=== PATIENT | male | born 1975 | race Caucasian/White ===

== ENCOUNTER → 2017-03-25 | Outpatient (CLI) | payer BC, OTHER ==
[~2017-03-25] VITALS: Ht 180.3 cm; Wt 91.9 kg
[2017-03-25 12:35] VITALS: BP 147/91; PULSE 56; Ht 180.3 cm; Wt 91.9 kg
== END | disposition home or self-care (01) ==
LOC: C.NEUR 12:15
PROVIDERS: ATTEND Internal Medicine Pulmonary Disease
DX: R06.83 Snoring (principal); R53.83 Other fatigue; R06.81 Apnea, not elsewhere classified; I10 Essential (primary) hypertension

== ENCOUNTER → 2017-05-17 | Outpatient (CLI) | payer BC, OTHER ==
[~2017-05-17] VITALS: Ht 180.3 cm; Wt 93.3 kg
[2017-05-17 12:31] VITALS: BP 149/80; PULSE 70; Ht 180.3 cm; Wt 93.3 kg
== END | disposition home or self-care (01) ==
LOC: C.NEUR 12:15
PROVIDERS: ATTEND Physician Assistant Medical
DX: G47.33 Obstructive sleep apnea (adult) (pediatric) (principal); G47.31 Primary central sleep apnea; R53.83 Other fatigue

== ENCOUNTER → 2017-09-02 | Outpatient (CLI) | payer BC, OTHER ==
--- NOTE | 2017-09-03 05:25 | PAP/PSG TECHNICIAN REPORT ---
[facility] Tipple Oiler Polysomnogram Report Study name: None Report date: 09/03/2017 Study date: 09/02/2017 Referring Physician: DR. GARCIA Name: ALEX SANCHEZ Interpreting Physician: Dave Garcia M.D. Date of : 1975 Tipple Oiler: Luciano Holguin RPSMAC. Sex: Male Age: 41 StudyType: PSG PAP Weight: 202 lbs 17 inches Height: 41 years, Height 5' 11" Neck Circum: BMI: 28.17 Medications: LISINOPRIL 5 MG Patient History PATIENT HAS HISTORY OF HYPERTENSION, SNORING AND GASPING FOR AIR. ALSO, HAD A BRAIN TUMOR. PATIENT HAD A SPLIT-STUDY DONE IN APRIL OF 2017 WITH AN AHI 0F 50.1/HR. HE HAS TRIED CPAP BUT HAS NOT BEEN TOLERANT OF IT. CENTRAL APNEAS WERE SEEN DURING A TRIAL OF CPAP. HE IS HERE TODAY FOR AN ASV STUDY. RM 3 Parameters Monitored NPSG: E1-M2, E2-M1, Fp1-M2, Fp2-M1, F3-M2, F4-M2, F4-M1, C3-M2, C4-M2, C4-M1, O1-M2, O2-M2, O2-M1, T3-M2, T4-M1, P3-M2, P4-M1, CHIN1, CHIN2, HR, EKG, Legs, PFLOW, SNOR, FLOW, CFLOW, Tidal Volume, THOR, ABDO, SpO2, PLTH, CPRESS, ETCO2 Wave, ETCO2, pH Sleep Architecture Sleep Stages Time at Lights Off 9:48:48 PM STAGES Time (min.) TST (%) Time at Lights On 5:16:48 AM Wake 43.0 -- Total Recording Time (TRT) 449.00 min. N1 14.5 4 Total Sleep Period (TSP) 429.0 min. N2 188.0 46 Total Sleep Time (TST) 405.0min. N3 140.0 35 Awake Time 44.0 min. REM 62.5 15 Wake after Sleep Onset 35.5 min. Sleep Efficiency (SE) 90 % Sleep Onset Latency (INGRIS) 7.5 min. Number of Stage 1 Shifts None Awakenings 13 Stage Changes 67 Number of REM periods 4 REM 62.5 15 REM Latency 140.0 min. NREM 342.5 85 Body Position Analysis Supine Right Left Side Prone Vertical Total Sleep Time (min.) 169.9 248.1 0.0 248.13 0.0 0.0 Total Sleep Time (%) 39% 61% 0% 61 0% N/A% Total Sleep Time REM (min.) 20.5 42.0 0.0 None 0.0 0.0 Total Sleep Time NREM (min.) 136.4 206.1 0.0 None 0.0 0.0 Intermittent Wake (min.) 13.0 30.0 0.0 None 0.0 0.0 Total Sleep Period (%) 39% None None None None None Arousals Myoclonus (PLM) * Events Count Index Events Count Index Spontaneous 45 7 Events Awake (PLMW) 16 22.3 Respiratory 6 0.9 Events Asleep w/ Arousal (PLMA) 2 0.3 PLM 2 0 Events Asleep w/o Arousal (PLMS) 13 1.9 Snoring 6 1 Total Asleep 15 2.2 Total 59 9 Total 31 4 Respiratory Analysis * CA OA MA CH H RERA Total Count 18 0 0 0 11 0 29 Index 2.7 0.0 0.0 0 1.6 0 4.3 Mean Duration 11.3 0.0 0.0 0.00 19.4 0.0 14.3 Longest Duration 13.0 0.0 0.0 0.00 0.0 0.0 42.1 Respiratory Event Summary Total Supine ~Supine Right Left Prone REM NREM Apneas Count 18 0 18 18 N/A N/A 0 18 Index 2.7 0 4 4.4 N/A N/A 0 3 Hypopneas (4% Desat) Count 11 4 7 7 N/A N/A 0 11 Index 1.6 1.5 2 1.7 N/A N/A 0.0 1.9 Apneas & All Hypopneas Count 29 4 25 25 N/A N/A 0 29 Index 4.3 2 6 6 N/A N/A 0.0 5.1 Respiratory Events (Parachute/Combatant Diver Officer+All Hyp+RERA) Count 29 4 25 25 N/A N/A 0 29 Index 4.3 2 6 6.0 N/A N/A 0.0 5.1 Respiratory Related Arousal Count 6 4 4 4 N/A N/A 0 6 Index 0.9 1 1 1 N/A N/A 0 1 Snoring Analysis Supine Right Left Prone REM NREM Total Snore duration 6.9 min Snores count 25 234 N/A N/A 2 257 259 Snore mean duration 1.6 Sec Snores index 10 57 N/A N/A 1.9 45.0 38.4 TST with snoring (%) 1.7% Desaturation Event Summary: Minimum %SpO2 Event Count Mean/Min/Max Duration(sec.) Desaturation Index % Time In Bed > 90 15 29.6 / 13.8 / 55.8 2.0 99.2 86 - 90 0 N/A 0.0 0.8 81 - 85 0 N/A 0.0 0.0 76 - 80 0 N/A 0.0 0.0 71 - 75 0 N/A 0.0 0.0 66 - 70 0 N/A 0.0 0.0 61 - 65 0 N/A 0.0 0.0 56 - 60 0 N/A 0.0 0.0 51 - 55 0 N/A 0.0 0.0 < 50 0 N/A 0.0 0.0 Total REM NREM Awake <50% 0.0 min. 0.0 min. 0.0 min. 0.0 min. 51 - 60% 0.0 min. 0.0 min. 0.0 min. 0.0 min. 61 - 70% 0.0 min. 0.0 min. 0.0 min. 0.0 min. 71 - 80% 0.0 min. 0.0 min. 0.0 min. 0.0 min. 81 - 90% 3.8 min. 0.2 min. 3.6 min. 0.0 min. 91 - 100% 444.2 min. 62.4 min. 338.9 min. 43.0 min. Average 94 93 94 96 Minimum SpO2 87 90 87 91 Desaturation Event Index 2.0 0.0 2.6 0.0 # Desat. Events below 89% 1 N/A 1 N/A Time(%) with Saturation below 89% 0.1 0.0 0.1 0.0 Time(min.) with Saturation below 89% 0.4 0.0 0.4 0.0 Time (mins) REM (mins) NREM (mins) % of TST SpO2 Below 90% 10 N/A N10 0.2 SpO2 Below 88% 1 0 0 0 Heart Rate Analysis Min (bpm) Max (bpm) Average (bpm) Awake 52 129 66 NREM 50 112 59 REM 50 80 57 Overall 50 112 58 Supplemental O2 Values Minimum O2 level: None Value Start Time End Time Tipple Oiler Comments Mr. Sanchez slept in the right and supine positions. No cardiac arrhythmia noted. Leg movements noted. No bruxism noted. ASV was initiated at EPAP MIN 4, EPAP MAX 15, MIN PS 4, MAX PS 20, MAX PRESSURE 25, RATE AUTO, which nearly eliminated all respiratory events and snoring. The patient brought in his own mask that was used during titration Mr. Sanchez awoke to use the restroom 0 times during the night. Mr. Sanchez stated I slept as well as I do when I am in my own bed. The final report will be interpreted and signed by a sleep physician. The completed physician report will then be placed in the patient medical record. Therapy Event: Therapy (cm H20) 1 Total Time at Pressure (min.) 448.0 TST at Pressure (min.) 405.0 # Periods 1 Sleep Onset (min.) 7.5 REM Onset (min.) 147.5 Sleep Efficiency % 90 Wakefulness (%) 9.6 Wakefulness (min.) 43.0 NREM 1 (%) 3.2 NREM 1 (min.) 14.5 NREM 2 (%) 42.0 NREM 2 (min.) 188.0 NREM 3 (%) 31.3 NREM 3 (min.) 140.0 REM (%) 14.0 REM (min.) 62.5 # Arousals 59 Arousal Index 8.7 # Snore 259 Snore Index 38.4 AHI 4.3 AHI Supine 1.5 AHI Non-Supine 6.0 NREM AHI 5.1 REM AHI 0.0 RDI 4.3 # Obstructive 0 # Central Ap 18 # Mixed 0 # Hypopneas 11 RERAS 0 Total Respiratory Events 29 Time Below SpO2 89.00% (min.) 0.4 Mean NREM SpO2 (%) 94 Mean REM SpO2 (%) 93 Mean Sleep SpO2 (%) 94 Min NREM SpO2 (%) 87 Min REM SpO2 (%) 90 Position Supine (min.) 156.9 Position Non-supine (min.) 248.1 LM Index Sleep 2.2 LM Index NREM 1.9 LM Index REM 3.8 Mean Heart Rate (bpm) 58 Min Heart Rate (bpm) 50
--- NOTE | 2017-09-05 19:23 | POLYSOMNOGRAPH REPORT ---
CLINICAL DATA: A 41-year-old male with BMI of 28.17, referred by myself for an ASV titration. He had a split-night study done in 04/2017 which showed severe sleep apnea with an AHI of 50.1. He developed treatment onset central apneas. He has tried CPAP but has not been tolerant of it. SLEEP ARCHITECTURE: Total sleep period was 429 minutes. Total sleep time was 405 minutes divided between 342.5 minutes of non-REM sleep and 62.5 minutes of REM sleep. Sleep onset latency was 7.5 minutes. REM latency was 140 minutes. Sleep efficiency was 90%. Wake after sleep onset was 35.5 minutes. Sleep consisted of stage N1 4%, stage N2 46%, stage N3 35% and REM 15%. AROUSAL DATA: 59 arousals were recorded for an index of 9 per hour. 45 were spontaneous. PERIODIC LIMB MOVEMENT DATA: 15 limb movements during sleep were noted for an index of 2.2 per hour with arousal index of 0.3 per hour. RESPIRATORY DATA: The AHI was 4.3. There were 18 central apneic episodes. The longest apneic episode was 13 seconds. There were 11 hypopneic episodes with a mean duration of 19.4 seconds. OXIMETRY DATA: No significant hypoxemia was seen. Oxygen regla was 87% during non-REM sleep. Mean saturation was 94%. Time below 88% was 1 minute. HEART RATE DATA: Heart rates ranged from 50-112 beats per minute. No arrhythmias were noted. BINDER AND BOX BUILDER'S COMMENTS: The patient slept in the right and supine positions. He brought his own facemask. He was started on ASV, EPAP minimum 4, EPAP maximum 15, minimum pressure support 4, maximum pressure support 20, maximum pressure 25, rate auto. On that regimen, the patient slept for 405 minutes with an AHI of 4. IMPRESSION: Severe obstructive sleep apnea, corrected with adaptive servo ventilation at the above-noted settings. RECOMMENDATIONS: The patient will be seen back in followup to be started on ASV. [facility]ITALBakari
== END | disposition home or self-care (01) ==
LOC: C.NEUR 21:00
PROVIDERS: ATTEND Physician Assistant Medical
DX: G47.33 Obstructive sleep apnea (adult) (pediatric) (principal)

== ENCOUNTER 2022-05-19 20:20 | Observation (INO) ==
[2022-05-19 20:56] LABS: Appearance Urine Clear (Clear); Bilirubin Urine Negative (Negative); Blood Urine Negative (Negative); Color Urine Yellow; Glucose Urine UA Negative (Negative); Ketones Urine Negative (Negative); Leukocyte Esterase Urine Negative (Negative); Nitrite Urine Negative (Negative); Protein Urine Negative (Negative); Specific Gravity Urine 1.023 (1.000-1.030); Urobilinogen Urine Negative (Negative)
[2022-05-19 21:15] LABS: Basophils # (auto) 0.08 K/uL (0-0.2); Basophils % (auto) 0.7 %; Eosinophils # (auto) 0.33 K/uL (0-0.50); Eosinophils % (auto) 2.9 %; Hematocrit (blood only) 31.3 % (40.1-51.0); Immature Granulocytes # (auto) 0.04 K/uL (0.00-0.02); Immature Granulocytes % (auto) 0.4 %; Lymphocytes # (auto) 3.69 K/uL (1.2-3.4); Lymphocytes % (auto) 32.8 %; Mean Corpuscular Hemoglobin 30.5 pg (25.0-34.0); Mean Corpuscular Hgb Conc 35.1 g/dL (32.0-36.0); Mean Corpuscular Volume 86.7 fL (80.0-100.0); Mean Platelet Volume 9.3 fL (9.4-12.4); Monocytes # (auto) 0.82 K/uL (0.24-0.82); Monocytes % (auto) 7.3 %; Neutrophils # (auto) 6.28 K/uL (1.4-6.5); Neutrophils % (auto) 55.9 %; Platelet Count 271 K/uL (130-400); RDW Coefficient of Variation 11.9 % (11.5-14.5); Red Blood Count 3.61 M/uL (4.63-6.08); White Blood Count 11.24 K/ul (4.8-10.8)
[2022-05-19 21:16] LABS: Albumin Globulin Ratio 1.5 (0.9-2); Albumin Level 3.9 gm/dl (3.4-5.0); BUN Creatinine Ratio 33.3 (10-20); Bilirubin,Total 0.5 mg/dl (0.2-1.0); Calcium 8.7 mg/dl (8.5-10.1); Creatinine Clr Calc Pharmacy 115.9 ml/min; Est GFR (African American) 112.1 ml/min; Est GFR (Non-African American) 96.7 ml/min; Globulin 2.6 gm/dl (2.5-4.0); Potassium 3.9 mmol/L (3.5-5.1); Total Protein 6.5 gm/dl (6.0-8.3)
[2022-05-19] MEDS ORDERED: PANTOprazole 80 MG in DEXTROSE 5% 100 ML IV ONE (21:36)
[2022-05-19] MEDS ORDERED: SODIUM CHLORIDE 0.9% 1000ML 2,000 ML IV ONE (21:36)
[2022-05-19] MEDS ORDERED: SODIUM CHLORIDE 0.9% 250 ML IV PRN (21:36)
--- NOTE | 2022-05-19 21:45 | Emergency Department Note ---
Impression & Plan Upper gastrointestinal hemorrhage, Symptomatic anemia, Elevated BUN, Elevated troponin ED Provider Note NAME: ALEX GARIBAY AGE: 46 SEX: M : 1975 ARRIVES VIA: Walk-In INFORMANT: Patient ED PROVIDER(S): Michael Braun DO CHIEF COMPLAINT: black stools HPI: Patient is a 38-year-old male who presents to the ER for black stools. This started yesterday. He notes he has been feeling very weak and rundown. When he goes up a flight of stairs now he is getting short of breath. No chest pain. No belly pain. No nausea, vomiting, or diarrhea. He denies any NSAID use, steroid use or frequency and use of alcohol. No dysuria, urgency, or frequency. No other exacerbating or remitting factors. No blood thinners. ROS: See above HPI for pertinent positives & negatives. A total of 10 systems reviewed and were otherwise negative. PAST MEDICAL HISTORY:See Below PAST SURGICAL HISTORY:See Below FAMILY HISTORY:See Below SOCIAL HISTORY:See Below HOME MEDICATIONS:See Below ALLERGIES:See Below VITALS:See Below PHYSICAL EXAMINATION: GENERAL: Sitting up in bed, alert, well appearing, well nourished, no distress, non-toxic EYE EXAM: normal conjunctiva. OROPHARYNX: no exudate, no erythema, lips, buccal mucosa, and tongue normal and mucous membranes are moist NECK: supple, no nuchal rigidity, no adenopathy, non-tender LUNGS: Clear to auscultation. Normal chest wall mechanics HEART: no murmurs, S1 normal and S2 normal ABDOMEN: abdomen soft, non-tender, normo-active bowel sounds, no masses, no rebound or guarding. RECTAL: Black heme positive stool UPPER EXTREMITIES: upper extremities are grossly normal. LOWER EXTREMITIES: No pitting edema. NEURO EXAM: Normal sensorium, cranial nerves II-XII grossly intact, normal speech, no gross weakness of arms, no gross weakness of legs. MEDICAL DECISION MAKING: Patient is a 46-year-old gentleman who denies any NSAID use, steroid use or significant alcohol use that presents the ER for black stools which have been present for the past 24 hours. IV was established blood work was obtained. No belly pain. Labs show mild leukocytosis 11,000. Hemoglobin 11 down from 15. BMP was unremarkable with exception of elevated BUN. LFTs bilirubin was unremarkable. Troponin was elevated at 53. Lipase was normal. UA was clean. COVID was negative. Patient was typed and crossed. Rectally shows heme positive black tarry stool. He was placed on Protonix drip and bolus. He was given IV fluids. He was updated bedside. Discussed with the hospitalist Dr. Doni Kinney for further evaluation and admission of his upper GI bleed. Triage Nursing notes reviewed. Limited review of prior medical records performed Vital Signs: reviewed and remarkable for no significant abnormalities Differential diagnosis: Differential diagnosis includes etiologies such as diverticulitis, diverticulosis, AVM, coagulopathy, colitis, inflammatory bowel disease, malignancy, Lennie-Mobley tear, esophagitis, peptic ulcer disease, variceal bleed, gastritis, epistaxis, fissure, hemorrhoids, as well as others were entertained. ER treatment provided: See below Diagnostics interpreted by me: ECG: Sinus rhythm at 85 Normal axis No PVCs QTC 435 Nonspecific T wave changes in the lateral leads Cardiac Monitoring: An order was placed for continuous cardiac monitoring. The monitor shows a rate of 80 with sinus rhythm. Laboratory studies: As stated above and show below. Imaging studies: See below Consultation(s): Discussed with [facility] hospitalist for further evaluation Procedures: none Critical Care: None Past Med/Surg History Medical History HTN (hypertension) Surgical History (Updated 03/06/22 @ 04:22 by Lupe Eaton PA-C) H/O brain surgery Social History Smoking Status: Never smoker Preferred Language: Venezuelan Feels Safe at Home: Yes Allergies Allergies Allergy/AdvReac Type Severity Reaction Status Date / Time levofloxacin Allergy Severe Anaphylaxis Verified 05/19/22 21:50 Home Meds Home Medications Medication Instructions Recorded Confirmed fexofenadine 180 mg tablet 180 mg PO DAILY 05/19/22 05/19/22 montelukast 10 mg tablet 10 mg PO HS 05/19/22 05/19/22 Results & Data (ED) Vital Signs Vital Signs - 24 hr 05/19/22 20:25 05/19/22 22:30 05/19/22 23:49 Temperature 36.9 C Temperature Source Temporal Artery Scan Pulse Rate 96 H Pulse Rate [Apical] 90 88 Respiratory Rate 20 18 20 Respiratory Effort / Characteristics Non-Labored Spontaneous Respiratory Depth Normal Blood Pressure 141/85 H Blood Pressure [Right Arm] 150/77 H 147/84 H Blood Pressure Mean 103 Blood Pressure Mean [Right Arm] 101 105 Pulse Oximetry 97 99 98 Oxygen Delivery Method Room Air Room Air Room Air Sepsis New/Unexplained Change in Mental Status N/A Sepsis Action Taken by Nursing No Action Required Laboratory Data Result diagrams: 05/19/22 20:35 05/19/22 20:35 Lab Results 05/19/22 05/19/22 05/19/22 Range/Units 20:35 20:35 20:35 WBC 11.24 H (4.8-10.8) K/ul RBC 3.61 L (4.63-6.08) M/uL Hgb 11.0 L (14.0-18.0) g/dl Hct 31.3 L (40.1-51.0) % MCV 86.7 (80.0-100.0) fL MCH 30.5 (25.0-34.0) pg MCHC 35.1 (32.0-36.0) g/dL RDW Std Deviation 38.0 (36.4-46.3) fL RDW Coeff of Tim 11.9 (11.5-14.5) % Plt Count 271 (130-400) K/uL MPV 9.3 L (9.4-12.4) fL Immature Gran % (Auto) 0.4 % Neut % (Auto) 55.9 % Lymph % (Auto) 32.8 % Ross % (Auto) 7.3 % Eos % (Auto) 2.9 % Baso % (Auto) 0.7 % Neut # (Auto) 6.28 (1.4-6.5) K/uL Lymph # (Auto) 3.69 H (1.2-3.4) K/uL Ross # (Auto) 0.82 (0.24-0.82) K/uL Eos # (Auto) 0.33 (0-0.50) K/uL Baso # (Auto) 0.08 (0-0.2) K/uL Immature Gran # (Auto) 0.04 H (0.00-0.02) K/uL Sodium 135 L (136-145) mmol/L Potassium 3.9 (3.5-5.1) mmol/L Chloride 104 (98-107) mmol/L Carbon Dioxide 24 (21-32) mmol/L Anion Gap 7 (3-11) BUN 31 H (6-23) mg/dl Creatinine 0.93 (0.6-1.4) mg/dl Est Cr Clr Drug Dosing 115.9 ml/min Est GFR ( Amer) 112.1 ml/min Est GFR (Non-Af Amer) 96.7 ml/min BUN/Creatinine Ratio 33.3 H (10-20) Glucose 134 H (70-99(Fasting)) mg/dl Calcium 8.7 (8.5-10.1) mg/dl Total Bilirubin 0.5 (0.2-1.0) mg/dl AST 20 (13-39) U/L ALT 33 (7-52) U/L Alkaline Phosphatase 56 (34-104) U/L Troponin I High Sens (0-20) pg/ml Total Protein 6.5 (6.0-8.3) gm/dl Albumin 3.9 (3.4-5.0) gm/dl Globulin 2.6 (2.5-4.0) gm/dl Albumin/Globulin Ratio 1.5 (0.9-2) Lipase 48 (11-82) U/L Urine Color Yellow Urine Appearance Clear (Clear) Urine pH 5.0 (4.5-7.5) Ur Specific Godley 1.023 (1.000-1.030) Urine Protein Negative (Negative) Urine Glucose (UA) Negative (Negative) Urine Ketones Negative (Negative) Urine Blood Negative (Negative) Urine Nitrite Negative (Negative) Urine Bilirubin Negative (Negative) Urine Urobilinogen Negative (Negative) Ur Leukocyte Esterase Negative (Negative) SARS-CoV-2, RNA, NAAT (NEGATIVE) Blood Type Blood Type Recheck Antibody Screen Crossmatch 05/19/22 05/19/22 05/19/22 Range/Units 22:04 22:11 22:25 WBC (4.8-10.8) K/ul RBC (4.63-6.08) M/uL Hgb (14.0-18.0) g/dl Hct (40.1-51.0) % MCV (80.0-100.0) fL MCH (25.0-34.0) pg MCHC (32.0-36.0) g/dL RDW Std Deviation (36.4-46.3) fL RDW Coeff of Tim (11.5-14.5) % Plt Count (130-400) K/uL MPV (9.4-12.4) fL Immature Gran % (Auto) % Neut % (Auto) % Lymph % (Auto) % Ross % (Auto) % Eos % (Auto) % Baso % (Auto) % Neut # (Auto) (1.4-6.5) K/uL Lymph # (Auto) (1.2-3.4) K/uL Ross # (Auto) (0.24-0.82) K/uL Eos # (Auto) (0-0.50) K/uL Baso # (Auto) (0-0.2) K/uL Immature Gran # (Auto) (0.00-0.02) K/uL Sodium (136-145) mmol/L Potassium (3.5-5.1) mmol/L Chloride (98-107) mmol/L Carbon Dioxide (21-32) mmol/L Anion Gap (3-11) BUN (6-23) mg/dl Creatinine (0.6-1.4) mg/dl Est Cr Clr Drug Dosing ml/min Est GFR ( Amer) ml/min Est GFR (Non-Af Amer) ml/min BUN/Creatinine Ratio (10-20) Glucose (70-99(Fasting)) mg/dl Calcium (8.5-10.1) mg/dl Total Bilirubin (0.2-1.0) mg/dl AST (13-39) U/L ALT (7-52) U/L Alkaline Phosphatase (34-104) U/L Troponin I High Sens 53.9 H* D (0-20) pg/ml Total Protein (6.0-8.3) gm/dl Albumin (3.4-5.0) gm/dl Globulin (2.5-4.0) gm/dl Albumin/Globulin Ratio (0.9-2) Lipase (11-82) U/L Urine Color Urine Appearance (Clear) Urine pH (4.5-7.5) Ur Specific Godley (1.000-1.030) Urine Protein (Negative) Urine Glucose (UA) (Negative) Urine Ketones (Negative) Urine Blood (Negative) Urine Nitrite (Negative) Urine Bilirubin (Negative) Urine Urobilinogen (Negative) Ur Leukocyte Esterase (Negative) SARS-CoV-2, RNA, NAAT NEGATIVE (NEGATIVE) Blood Type AB Positive Blood Type Recheck Antibody Screen NEGATIVE Crossmatch See Detail 05/19/22 Range/Units 22:48 WBC (4.8-10.8) K/ul RBC (4.63-6.08) M/uL Hgb (14.0-18.0) g/dl Hct (40.1-51.0) % MCV (80.0-100.0) fL MCH (25.0-34.0) pg MCHC (32.0-36.0) g/dL RDW Std Deviation (36.4-46.3) fL RDW Coeff of Tim (11.5-14.5) % Plt Count (130-400) K/uL MPV (9.4-12.4) fL Immature Gran % (Auto) % Neut % (Auto) % Lymph % (Auto) % Ross % (Auto) % Eos % (Auto) % Baso % (Auto) % Neut # (Auto) (1.4-6.5) K/uL Lymph # (Auto) (1.2-3.4) K/uL Ross # (Auto) (0.24-0.82) K/uL Eos # (Auto) (0-0.50) K/uL Baso # (Auto) (0-0.2) K/uL Immature Gran # (Auto) (0.00-0.02) K/uL Sodium (136-145) mmol/L Potassium (3.5-5.1) mmol/L Chloride (98-107) mmol/L Carbon Dioxide (21-32) mmol/L Anion Gap (3-11) BUN (6-23) mg/dl Creatinine (0.6-1.4) mg/dl Est Cr Clr Drug Dosing ml/min Est GFR ( Amer) ml/min Est GFR (Non-Af Amer) ml/min BUN/Creatinine Ratio (10-20) Glucose (70-99(Fasting)) mg/dl Calcium (8.5-10.1) mg/dl Total Bilirubin (0.2-1.0) mg/dl AST (13-39) U/L ALT (7-52) U/L Alkaline Phosphatase (34-104) U/L Troponin I High Sens (0-20) pg/ml Total Protein (6.0-8.3) gm/dl Albumin (3.4-5.0) gm/dl Globulin (2.5-4.0) gm/dl Albumin/Globulin Ratio (0.9-2) Lipase (11-82) U/L Urine Color Urine Appearance (Clear) Urine pH (4.5-7.5) Ur Specific Godley (1.000-1.030) Urine Protein (Negative) Urine Glucose (UA) (Negative) Urine Ketones (Negative) Urine Blood (Negative) Urine Nitrite (Negative) Urine Bilirubin (Negative) Urine Urobilinogen (Negative) Ur Leukocyte Esterase (Negative) SARS-CoV-2, RNA, NAAT (NEGATIVE) Blood Type Blood Type Recheck AB Positive Antibody Screen Crossmatch Administered Medications Pantoprazole Sodium 40 mg/ (Dextrose) 100 mls @ 20 mls/hr IV Q5H CHANTEL Stop: 06/18/22 21:59 Last Admin: 05/19/22 22:23 Dose: 8 mg/hr, 20 mls/hr Documented By: AN Discontinued Medications Sodium Chloride (Nss 1000ml) 2,000 mls @ 999 mls/hr IV .Q2H1M ONE Stop: 05/19/22 23:36 Last Admin: 05/19/22 22:22 Dose: 999 mls/hr Documented By: AN Pantoprazole Sodium (Protonix Bolus/Drip) 0 mls @ 1 mls/hr IV ONE STA Stop: 05/19/22 21:37 Last Admin: 05/19/22 22:39 Dose: Not Given Documented By: AN Pantoprazole Sodium 80 mg/ (Dextrose) 120 mls @ 400 mls/hr IV NOW ONE Stop: 05/19/22 21:53 Last Infusion: 05/19/22 22:45 Dose: 0 mls/hr Documented By: Admin: 05/19/22 22:22 Dose: 400 mls/hr Documented By: AN Discharge Plan Visit Data Chief Complaint: GI Assessment Stated Complaint: STOOL WAS BLACK, CHEST PAIN, VERTIGO ED Provider: Michael Braun Discharge Problem: Upper gastrointestinal hemorrhage, Symptomatic anemia, Elevated BUN, Elevated troponin Forms Stand Alone Forms: My [facility] Prescriptions Prescriptions: No Action fexofenadine [Cynthia] 180 mg Tablet 180 mg PO DAILY montelukast 10 mg tablet 10 mg PO HS Referrals Referrals: Garrison Kovacs MD [Primary Care Provider] -
[2022-05-19] MEDS: PANTOprazole 40 MG in DEXTROSE 5% 100 ML IV SCH (22:23)
[2022-05-19] MEDS: PANTOPRAZOLE BOLUS/DRIP 1 EACH IV STA ×2 (22:23→22:39)
--- NOTE | 2022-05-20 01:37 | History and Physical Report ---
DATE OF ADMISSION: 05/20/2022. CHIEF COMPLAINT: Melena. HISTORY OF PRESENT ILLNESS: This is a 46-year-old male with past medical history significant for prediabetes, obstructive sleep apnea, not using CPAP machine, hypertension, but says this is borderline and last 3 months is not taking any blood pressure medications, history of GERD, history of NIELSEN, history of vertigo-post stroke, history of COVID-19, presents with melena. The patient says since yesterday he is having black stools. Denies any abdominal pain, no nausea, no vomiting, no fevers, no chest pain, but today he was feeling short of breath while coming on the steps from his basement . Denies any headache. There is no neck pain, no blurred visions, no earache, no runny nose, no sore throat, no difficulty swallowing. Currently, hemodynamically stable, resting comfortably. The patient says he took one dose of ibuprofen yesterday and a couple of weeks ago, he took celecoxib for 2-3 weeks. ALLERGIES: LEVAQUIN. PAST MEDICAL HISTORY: As mentioned above. PAST SURGICAL HISTORY: Dental surgery, EGD, EGD with endoscopic ultrasound, craniotomy, tonsillectomy, and adenoidectomy. MEDICATIONS: Currently on Advair Diskus 1 puff b.i.d., montelukast 10 mg p.o. at bedtime, fexofenadine 180 mg p.o. daily. FAMILY HISTORY: Significant for father had prostate cancer, Guillain-Brodhead; maternal aunt has breast cancer; maternal grandfather had prostate cancer; maternal grandmother had breast cancer; maternal grandfather, diabetes; maternal grandmother has diabetes; maternal grandfather has heart disorder, hypertension. SOCIAL HISTORY: , no smoking. Alcohol occasional. No drug use. REVIEW OF SYSTEMS: As per HPI. Rest of the review of systems is negative. PHYSICAL EXAMINATION: GENERAL: The patient is obese, not in acute distress. VITAL SIGNS: Temperature 36.9, pulse 80, respiratory rate 20, blood pressure 147/84, oxygen 98% on room air. HEENT: Pupils equal, round, and reactive to light. Oral mucosa moist. NECK: No JVD, no neck masses. CARDIOVASCULAR: S1 and S2 heard. Regular rate and rhythm. No murmur, no gallop. RESPIRATORY SYSTEM: Normal AP diameter. No accessory muscle use. No wheezing, no crackles. ABDOMEN: Soft, bowel sounds present, nontender, no distention. CENTRAL NERVOUS SYSTEM: Cranial nerves II through XII grossly intact, nonfocal. EXTREMITIES: No edema, no erythema. LABORATORY DATA: WBC 11.2, hemoglobin 11, hematocrit 31.3, platelets 271. Sodium 135, potassium 3.9, chloride 104, bicarb 24, BUN 31, creatinine 0.9, serum glucose 134, calcium 8.7, total bilirubin 0.5, AST 20, ALT 33, alkaline phosphatase 56. Troponin I high sensitivity 53.9. Urinalysis negative. SARS-CoV-2 rapid test negative. EKG: Normal sinus rhythm with short CO at a rate of 85, nonspecific ST abnormalities. ASSESSMENT AND PLAN: This is a 46-year-old male who presents with melena. 1. Melena. Hemoglobin dropped from 15.1 in February to 11. He took one dose of ibuprofen yesterday and says he was on celecoxib for 2-3 weeks a couple of weeks ago. No abdominal pain. ER started on Protonix drip which will be continued. Blood consent obtained. Will follow H and H q. 6 hours and consult GI in the a.m. Closely monitor in the tele floor. 2. History of prediabetes: Will follow HbA1c level. 3. History of hypertension: Used to be on chlorthalidone, currently not take any medication. Will monitor the blood pressure. 4. Mild elevation of troponin: Mostly demand ischemia. Will follow the serial enzymes. 5. History of sleep apnea: He is not using CPAP. As per patient he is getting sleep study soon. 6. Deep venous thrombosis prophylaxis: Sequential compression devices. DISPOSITION: Closely monitor in the tele floor. Level 1 full code. Job ID: [id number] [facility]
[2022-05-20] MEDS ORDERED: PANTOprazole 40 MG in DEXTROSE 5% 100 ML IV SCH (01:41)
[2022-05-20] MEDS ORDERED: ACETAMINOPHEN 325 MG TAB PO PRN (01:41)
[2022-05-20] MEDS ORDERED: NITROGLYCERIN SL 0.4 MG/TAB TAB SL PRN (01:41)
[2022-05-20] MEDS ORDERED: ONDANSETRON INJ 2 MG/ML 2 ML VIAL IV PRN (01:41)
[2022-05-20] MEDS: SODIUM CHLORIDE 0.9% 1000ML 1,000 ML IV SCH ×2 (01:56→09:13)
[2022-05-20] MEDS: PANTOprazole 40 MG in DEXTROSE 5% 100 ML IV SCH ×3 (03:44→14:49)
[2022-05-20 05:55] LABS: Basophils # (auto) 0.06 K/uL (0-0.2); Basophils % (auto) 0.6 %; Eosinophils # (auto) 0.31 K/uL (0-0.50); Eosinophils % (auto) 3.3 %; Hematocrit (blood only) 28.2 % (40.1-51.0); Hemoglobin 9.8 g/dl (14.0-18.0); Immature Granulocytes # (auto) 0.04 K/uL (0.00-0.02); Immature Granulocytes % (auto) 0.4 %; Lymphocytes # (auto) 3.22 K/uL (1.2-3.4); Lymphocytes % (auto) 34.2 %; Mean Corpuscular Hemoglobin 31.1 pg (25.0-34.0); Mean Corpuscular Hgb Conc 34.8 g/dL (32.0-36.0); Mean Corpuscular Volume 89.5 fL (80.0-100.0); Mean Platelet Volume 9.3 fL (9.4-12.4); Monocytes # (auto) 0.62 K/uL (0.24-0.82); Monocytes % (auto) 6.6 %; Neutrophils # (auto) 5.17 K/uL (1.4-6.5); Neutrophils % (auto) 54.9 %; Platelet Count 215 K/uL (130-400); RDW Coefficient of Variation 12.4 % (11.5-14.5); RDW Standard Deviation 39.7 fL (36.4-46.3); Red Blood Count 3.15 M/uL (4.63-6.08); White Blood Count 9.42 K/ul (4.8-10.8)
[2022-05-20 06:13] LABS: Partial Thromboplastin Ratio 0.9; Partial Thromboplastin Time 26.1 Seconds (21.0-31.0); Prothrombin Time 10.7 Seconds (9.0-12.0)
[2022-05-20 06:19] LABS: Troponin I High Sensitivity 48.9 pg/ml (0-20)
[2022-05-20 06:20] LABS: BUN Creatinine Ratio 24.4 (10-20); Est GFR (African American) 116.6 ml/min; Est GFR (Non-African American) 100.6 ml/min; Magnesium 1.9 mg/dl (1.7-2.4); Potassium 4.3 mmol/L (3.5-5.1)
[2022-05-20 08:06] LABS: Estimated Average Glucose 134 mg/dl; Hemoglobin A1C 6.3 % (4.5-5.6)
[2022-05-20] MEDS ORDERED: FEXOFENADINE HCL 180 MG TAB PO SCH (09:00)
--- NOTE | 2022-05-20 09:28 | Gastrointestinal Consultation ---
Date of Consultation May 20, 2022 Assessment & Plan (1) Melena: (2) Acute blood loss anemia: Plan Sources of melena/anemia considered include ulcer disease, esophagitis, gastritis, duodenitis. Continue PPI drip. Continue NPO. Plan for EGD today by Dr. Annita Simpson. Further recommendations to follow EGD. Though melena suggests an UGI Bleed, if no abnormalities on EGD then would go forward with colonoscopy. It appears that he has not had initial screening colonoscopy as of yet. Colonoscopy to be arranged as an outpatient, if patient remains stable. History of Present Illness Reason for Consultation: Melena Requesting Physician: Carin Attending Physician: Amado James MD History of Present Illness Mr. Luisito Sanchez is a 46 yr old male pt of Dr. Fermín hawley a hx of Neurosurgery for brain tumor approximately 10 years ago with some balance issues and other deficits, allergies and asthma who presented to the ED yesterday for SOB which he first noticed yesterday when trying to go up a flight of stairs. He also reports that he had he had passed 1 formed black BM on Tuesday and two yesterday. Denies any Pepto-Bismol or iron supplement use. When asked about NSAIDs he reported using 1 dose on Tuesday but does not typically take NSAIDs. Denies any abdominal pain or reflux. No chest pressure or irregular heartbeats. He is hemodynamically stable, n.p.o., on a PPI drip, has not had a bowel movement since yesterday. Hemoglobin was 15 in February, 11 yesterday on arrival, and 9.42 this morning. He has not received any blood products. He is not on any anticoagulants or antiplatelet medications. INR and BUN are normal. Of note, the patient mentions having had a gastric ulcer previously. Review of his records shows that, in 2015 he underwent an EGD by Dr. Caden Esteves, for epigastric and chest pain, with findings of gastritis and a comment, " probable healing ulcer." EUS at that time with fatty liver otherwise normal. Allergies Allergy/AdvReac Type Severity Reaction Status Date / Time levofloxacin Allergy Severe Anaphylaxis Verified 05/19/22 21:50 Home Medications Medication Instructions Recorded Confirmed Type fexofenadine 180 mg tablet 180 mg PO DAILY 05/19/22 05/19/22 History montelukast 10 mg tablet 10 mg PO HS 05/19/22 05/19/22 History Patient History Medical History HTN (hypertension) Surgical History (Updated 03/06/22 @ 04:22 by Lupe Eaton PA-C) H/O brain surgery Social History Smoking Status: Never smoker Do You Dip or Chew Tobacco: No; Hx Alcohol Use: Yes Hx Substance Use: No Preferred Language: Bulgarian Communication Ability: Effective Press Puller Required: No Beliefs That Will Affect Care: None Current Living Situation: Family Current Living Situation Comment: single family home Other Information That Helps Us Care for You: No Feels Safe at Home: Yes Safety Concerns: Feels Safe At This Time Assistive Devices: None Review of Systems Review of Systems: ROS: Gen: + chronic balance issues. Denies weakness, fevers, weight loss Eyes: No eye redness, or pain, no recent vision changes Resp: + SOB, No cough Cardio: + SOB. No palpitations/irregular beats, no chest pain GI: No abdominal pain, no nausea/vomiting : Denies pain on urination Skin: No jaundice, itching or new rashes Physical Exam Constitutional: WD/WN, vitals as above Eyes: PERRL, conjunctivae normal, anicteric sclerae ENMT: external ear and nose normal, oropharynx normal Neck: trachea midline, no thyromegaly Respiratory: normal respiratory effort, lungs clear to auscultation Cardiovascular: RRR, no murmur, no edema Gastrointestinal (Abdomen): normal bowel sounds, soft, nontender, no hepatosplenomegaly Musculoskeletal: no cyanosis or clubbing, extremities motor strength 5/5 Skin: no rashes, warm and dry Neurologic: PERRL, EOMI, accommodation nl, no face palsy, no dysarthria Psychiatric: A+Ox3, euthymic affect Lymphatic: no cervical or axillary lymphadenopathy Results & Data ([facility]) Vital Signs (Past 12 Hours) Vital Signs Temp Pulse Pulse Resp BP Pulse Ox Pulse Ox 05/20/22 07:49 37.1 C 89 18 126/67 97 05/20/22 07:38 78 05/20/22 04:12 83 05/20/22 03:45 36.8 C 75 20 126/71 98 05/20/22 01:41 36.7 C 84 20 155/84 H 99 05/20/22 01:41 99 05/20/22 01:43 05/20/22 01:43 36.7 C 84 20 155/84 H 99 05/20/22 01:15 05/20/22 01:00 96 H 16 96 05/19/22 23:49 88 20 147/84 H 98 05/19/22 22:30 90 18 150/77 H 99 O2 Del Method O2 Del Method 05/20/22 07:49 Room Air 05/20/22 07:38 05/20/22 04:12 05/20/22 03:45 Room Air 05/20/22 01:41 Room Air 05/20/22 01:41 Room Air 05/20/22 01:43 Room Air 05/20/22 01:43 Room Air 05/20/22 01:15 Room Air 05/20/22 01:00 Room Air 05/19/22 23:49 Room Air 05/19/22 22:30 Room Air Laboratory Results WBC 9.42, Hb 9.8, HCT 28.2, PLTs 215 PT 26, INR 1.0, NA 139, K40.3, CL 111, CO2 24, BUN 22, CR 0.9, glucose 134
--- NOTE | 2022-05-20 11:23 | Anesthesiology Consultation ---
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 Calvin Simpson MD Height/Weight Height: 5 ft 11 in Weight: 98.4 kg Allergies Allergy/AdvReac Type Severity Reaction Status Date / Time levofloxacin Allergy Severe Anaphylaxis Verified 05/19/22 21:50 Medications Home Medications Medication Instructions Recorded Confirmed Last Taken fexofenadine 180 mg tablet 180 mg PO DAILY 05/19/22 05/19/22 05/19/22 montelukast 10 mg tablet 10 mg PO HS 05/19/22 05/19/22 05/18/22 Active Medications Generic Name Dose Route Start Last Admin Trade Name Freq PRN Reason Stop Dose Admin Fexofenadine HCl 180 mg 05/20/22 09:00 05/20/22 08:21 Fexofenadine Hcl 180 Mg Tab PO 06/19/22 08:59 Not Given DAILY CHANTEL Pantoprazole Sodium 40 mg/ 100 mls @ 20 mls/hr 05/19/22 22:00 05/20/22 08:21 Dextrose IV 06/18/22 21:59 8 mg/hr Q5H CHANTEL 20 mls/hr Administration 8 MG/HR Sodium Chloride 1,000 mls @ 125 mls/hr 05/20/22 01:41 05/20/22 09:13 Nss 1000ml IV 06/19/22 01:40 125 mls/hr .Q8H CHANTEL Administration Past Medical History Medical History (Updated 05/20/22 @ 11:25 by Kenton Mckeon MD) Encounter for pre-operative examination HTN (hypertension) Past Surgical History Surgical History H/O brain surgery Social History Smoking Status: Never smoker Do You Dip or Chew Tobacco: No Hx Alcohol Use: Yes alcohol intake frequency: holidays/special occasions only Hx Substance Use: No Physical Exam Vital Signs Last Vital Signs Temp 37.1 C 05/20/22 07:49 Pulse 89 05/20/22 07:49 Resp 18 05/20/22 07:49 BP 126/67 05/20/22 07:49 Pulse Ox 97 05/20/22 07:49 O2 Del Method 05/20/22 07:49 Testing Laboratory Results 05/20/22 10:52 05/20/22 05:26 PT 10.7 Seconds (9.0-12.0) 05/20/22 05: INR 1.0 (0.9-1.1) 05/20/22 05:26 APTT 26.1 Seconds (21.0-31.0) 05/20/22 05:26 Hemoglobin A1c 6.3 % (4.5-5.6) H 05/20/22 05:26 Urine Color Yellow 05/19/22 20:35 Urine Appearance Clear (Clear) 05/19/22 20:35 Urine pH 5.0 (4.5-7.5) 05/19/22 20:35 Ur Specific Bath 1.023 (1.000-1.030) 05/19/22 20:35 Urine Protein Negative (Negative) 05/19/22 20:35 Urine Glucose (UA) Negative (Negative) 05/19/22 20:35 Urine Ketones Negative (Negative) 05/19/22 20:35 Urine Nitrite Negative (Negative) 05/19/22 20:35 Ur Leukocyte Esterase Negative (Negative) 05/19/22 20:35 Blood Type AB Positive 05/19/22 22:11 Antibody Screen NEGATIVE 05/19/22 22:11 Electrocardiogram Date: 05/19/2219-May-2022 20:29:38 [facility]-EDSTAT ROUTINE RETRIEVAL Sinus rhythm with short NM Nonspecific T wave abnormality Abnormal ECG When compared with ECG of 06-MAR-2022 03:54, T wave inversion more evident in Lateral leads Chest X-Ray Date: 03/06/22 XR chest 1V portable CLINICAL HISTORY: Chest Pain TECHNIQUE: Single frontal radiograph of the chest was obtained. Comparison: Comparison is made to chest radiograph 01/13/2016 FINDINGS: No lines and tubes are seen. The cardiomediastinal silhouette is normal. The lungs are clear. No evidence of pleural effusion or pneumothorax. IMPRESSION: No acute chest disease.
--- NOTE | 2022-05-20 11:43 | History & Physical Bridge Note ---
Date of Service May 20, 2022 History & Physical Bridge Note I have examined the patient, reviewed the History & Physical and in the interval since the performance of the History & Physical I have noted the following changes of clinical significance: no changes noted Supervising Physician Co-Signing Physician Notes EGD for evaluation of melena. Recent nsaid use. No ethanol use endorsed.
[2022-05-20] MEDS ORDERED: PROPOFOL IV EMULSION 10 MG/ML 20 ML VIAL IV ONE (11:57)
[2022-05-20] MEDS ORDERED: LIDOCAINE 2% MPF LOCAL 5 ML VIAL INFIL ONE (11:57)
[2022-05-20] MEDS ORDERED: KETAMINE 50 MG/5 ML SYRINGE ONE (11:57)
--- NOTE | 2022-05-20 12:06 | GI REPORT ---
Patient Name: Luisito Sanchez Procedure Date: 05/20/2022 11:46 AM Date of : 1975 Admit Type: Inpatient Age: 46 Gender: Male Attending MD: Annita Simpson M.d. Procedure: Upper GI endoscopy Providers: Annita Simpson M.d. Referring MD: Garrison Kovacs Indications: Melena Medicines: See anesthesia record Complications: No immediate complications. Estimated Blood Loss: Estimated blood loss: none. Procedure: Pre-Anesthesia Assessment: - Patient identification and proposed procedure were verified prior to the procedure by the physician, the nurse and the anesthesiologist. The procedure was verified in the pre-procedure area. - Prior to the procedure, a History and Physical was performed, and patient medications, allergies and sensitivities were reviewed. The patient's tolerance of previous anesthesia was reviewed. - The risks and benefits of the procedure and the sedation options and risks were discussed with the patient. All questions were answered and informed consent was obtained. After obtaining informed consent, the endoscope was passed under direct vision. Throughout the procedure, the patient's blood pressure, pulse, and oxygen saturations were monitored continuously. The Scope was introduced through the mouth, and advanced to the second part of duodenum. The upper GI endoscopy was accomplished without difficulty. The patient tolerated the procedure well. Findings: The examined esophagus appearednormal. LA Grade A (one or more mucosal breaks less than 5 mm, not extending between tops of 2 mucosal folds) esophagitis with no bleeding was found. The appeared examined stomach normal - no evidence of ulceration was noted. The duodenal bulb and second portion of the duodenum appeared normal - no evidence of ulceration was noted. Impression: - Normal esophagus. - LA Grade A esophagitis. - Normal stomach. - Normal duodenal bulb and second portion of the duodenum. Recommendation: - BID ppi for 8 weeks. - Recall EGD in 8-12 weeks to ensure esophagitis has healed. Elliot Covarrubias M.d. 05/20/2022 12:06:03 PM This report has been signed electronically. Note Initiated On: 05/20/2022 11:46 AM Number of Addenda: 0 I attest to the content of the Intraoperative Record and orders documented therein, exceptions below {[id number]}
--- NOTE | 2022-05-20 12:07 | Communication Note ---
Date of Service: May 20, 2022 EGD completed with findings of distal esophagitis, no ulcers noted in stomach or duodenum. Treat with oral bid ppi for 8 weeks. Recall egd in 8-12 weeks for re-evaluation of esophagitis. OK to ga home. Ideally avoid nsaid's.
--- NOTE | 2022-05-20 13:50 | Anesthesiology Progress Note ---
Date of Service May 20, 2022 Anesthesia Post Procedure Vital Signs Vital Signs: Temp Pulse Pulse Pulse Resp BP BP 05/20/22 12:57 36.7 C 72 14 142/94 H 05/20/22 12:39 72 16 135/79 05/20/22 12:24 73 16 138/89 05/20/22 12:09 78 16 133/72 05/20/22 11:22 36.8 C 85 16 163/92 H 05/20/22 07:49 37.1 C 89 18 126/67 05/20/22 07:38 78 05/20/22 04:12 83 05/20/22 03:45 36.8 C 75 20 126/71 05/20/22 01:41 36.7 C 84 20 155/84 H 05/20/22 01:41 05/20/22 01:43 05/20/22 01:43 36.7 C 84 20 155/84 H 05/20/22 01:15 05/20/22 01:00 96 H 16 05/19/22 23:49 88 20 147/84 H 05/19/22 22:30 90 18 150/77 H 05/19/22 20:25 36.9 C 96 H 20 141/85 H Pulse Ox Pulse Ox O2 Del Method O2 Del Method 05/20/22 12:57 97 Room Air 05/20/22 12:39 99 Room Air 05/20/22 12:24 96 Room Air 05/20/22 12:09 95 Room Air 05/20/22 11:22 100 Room Air 05/20/22 07:49 97 Room Air 05/20/22 07:38 05/20/22 04:12 05/20/22 03:45 98 Room Air 05/20/22 01:41 99 Room Air 05/20/22 01:41 99 Room Air 05/20/22 01:43 Room Air 05/20/22 01:43 99 Room Air 05/20/22 01:15 Room Air 05/20/22 01:00 96 Room Air 05/19/22 23:49 98 Room Air 05/19/22 22:30 99 Room Air 05/19/22 20:25 97 Room Air Transfer of Care Handoff Completed per policy Notes Mental Status: alert / awake / arousable and participated in evaluation Patient Amnestic to Procedure: Yes Nausea / Vomiting: adequately controlled Pain: adequately controlled Airway Patency, RR, SpO2: stable & adequate BP & HR: stable & adequate Hydration State: stable & adequate Anesthetic Complications: no major complications apparent and Pt Satisfied with anesthetic care
[2022-05-20] MEDS ORDERED: Nursing to Pharmacy Communication SCH (14:00)
--- NOTE | 2022-05-20 16:59 | Discharge Summary ---
Date of Service May 20, 2022 Admission HPI Per Admitting Provider This is a 46-year-old male with past medical history significant for prediabetes, obstructive sleep apnea, not using CPAP machine, hypertension, but says this is borderline and last 3 months is not taking any blood pressure medications, history of GERD, history of NIELSEN, history of vertigo-post stroke, history of COVID-19, presents with melena. The patient says since yesterday he is having black stools. Denies any abdominal pain, no nausea, no vomiting, no fevers, no chest pain, but today he was feeling short of breath while coming on the steps from his basement . Denies any headache. There is no neck pain, no blurred visions, no earache, no runny nose, no sore throat, no difficulty swallowing. Currently, hemodynamically stable, resting comfortably. The patient says he took one dose of ibuprofen yesterday and a couple of weeks ago, he took celecoxib for 2-3 weeks. Admission Exam Per Admitting Provider GENERAL: The patient is obese, not in acute distress. VITAL SIGNS: Temperature 36.9, pulse 80, respiratory rate 20, blood pressure 147/84, oxygen 98% on room air. HEENT: Pupils equal, round, and reactive to light. Oral mucosa moist. NECK: No JVD, no neck masses. CARDIOVASCULAR: S1 and S2 heard. Regular rate and rhythm. No murmur, no gallop. RESPIRATORY SYSTEM: Normal AP diameter. No accessory muscle use. No wheezing, no crackles. ABDOMEN: Soft, bowel sounds present, nontender, no distention. CENTRAL NERVOUS SYSTEM: Cranial nerves II through XII grossly intact, nonfocal. EXTREMITIES: No edema, no erythema. Principal Diagnosis Esophagitis, melena, anemia (GI bleed) Discharge Exam GENERAL: WD/WN M in NAD HEENT: NC/AT. EOMI. Pupils equal, round, and reactive to light. Oral mucosa moist. NECK: No JVD, no neck masses. CARDIOVASCULAR: S1 and S2 heard. Regular rate and rhythm. No murmur, no gallop. RESPIRATORY: Normal AP diameter. No accessory muscle use. No wheezing, no crackles. ABDOMEN: Soft, bowel sounds present, nontender, no distention. NEURO:Alert oriented, answering questions appropriately, moves extremities spontaneously septic with EXTREMITIES: No edema, no erythema. Discharge Data Allergies Allergy/AdvReac Type Severity Reaction Status Date / Time levofloxacin Allergy Severe Anaphylaxis Verified 05/19/22 21:50 Consultations 05/19/22 21:36 ED Decision to Admit Stat 05/20/22 08:00 Consult Gastroenterology Routine Procedures Performed Operation Date: 05/20/22 16:45 Actual Procedures p Esophagogastroduodenoscopy - Annita Simpson MD Hospital Course (1) Melena: This is a 46-year-old male who presents with melena. Acute blood loss anemia. 1. Melena. Hemoglobin dropped from 15.1 in February to . He took one dose of ibuprofen yesterday and says he was on celecoxib for 2-3 we eks a couple of weeks ago. No abdominal pain. ER started on Protonix drip which will be continued. Blood consent obtained. Will follow H and H q. 6 hours and consult GI in the a.m. Closely monitor in the tele floor. Patient seen by gastroenterology and underwent upper endoscopy. EGD with findings of distal esophagitis, no ulcers noted in stomach or duodenum. Treat with oral bid ppi for 8 weeks. Repeat EGD in 8-12 weeks for re-evaluation of esophagitis. Ideally avoid NSAIDs. 2. History of prediabetes: Current HbA1c level 6.3%. Follow as outpt. 3. History of hypertension: Used to be on chlorthalidone, currently not take any medication. Will monitor the blood pressure. 4. Mild elevation of troponin: Mostly demand ischemia. No chest pain. 5. History of sleep apnea: He is not using CPAP. As per patient he is getting sleep study soon. Total Time Total Time Spent Total Time Spent (In Minutes): 35 Discharge Plan Discharge Items Patient Disposition: Home - Self-Care Reason For Visit: BLACK STOOLS Discharge Diagnosis: Esophagitis, melena, anemia ( GI bleed) Activity: Per Instructions section Non-emergency contact: Primary Care Provider Call non-emergency contact if: you have any medication questions and your symptoms worsen Follow-up/Referrals: Garrison Kovacs MD [Primary Care Provider] - Diet: Heart Healthy Addtl Attending Provider Instructions: Follow-up with your primary care doctor within 1 week. Take metoprolol 40 mg twice a day for 8 weeks. You will need to have repeat endoscopy in 8 to 12 weeks to ensure esophagitis has healed. Avoid NSAIDs such as Motrin, Aleve, naproxen. You can take Tylenol for pain. Also recommend to avoid spicy, hot foods, caffeine and alcohol. Pending Studies at Discharge: No Stand-Alone Forms: My [facility], Smoking Cessation Medications and DC Order Prescriptions: New pantoprazole 40 mg tablet,delayed release (DR/EC) 40 mg PO BID 30 Days Qty: 60 1RF Continued fexofenadine [Cynthia] 180 mg Tablet 180 mg PO DAILY montelukast 10 mg tablet 10 mg PO HS Discharge Orders: Discharge Order (Routine); Ordered 05/20/22 Ordered By: Amado Thorpe/Other Patient Handouts: Prediabetes, 5 Steps for Eating Healthier Admission Data Admit Date/Time: 05/20/22 00:45 Attending Provider: Amado James Admit Provider: Krishna Del Rosario Primary Care Provider: Garrison Kovacs Other Providers: Krishna Del Rosario ; Joao Watson ; Luis Clinton ; Brie Jones ; Gudelia Meehan ; Natasha Sol ; Johanny Norton ; Mamta,Dionicio ; Ashanti Mcghee ; Didier Flowers ; Caden Esteves ; Sheryl Mcintosh ; Andrew Mccormick ; Misti Muhammad ; Roxanne Walker ; Khadijah Fuller ; Annita Simpson ; Amadeo Desir ; Emil Vann ; Jerson Gordon ; Natalee Nielson ; Sabrina Conway Jr Other Interventions: Discharge Summary Assessment (RN) Last Done: 05/20/22 12:20
[2022-05-20 17:32] LABS: Hematocrit (blood only) 28.7 % (40.1-51.0); Hemoglobin 9.7 g/dl (14.0-18.0)
[2022-05-20] MEDS ORDERED: MONTELUKAST SODIUM 10 MG TABLET PO SCH (21:00)
--- NOTE | 2022-05-21 22:41 | Electrocardiogram Report ---
Test Reason : Blood Pressure : / mmHG Vent. Rate : 085 BPM Atrial Rate : 085 BPM P-R Int : 120 ms QRS Dur : 086 ms QT Int : 384 ms P-R-T Axes : 007 014 087 degrees QTc Int : 457 ms Sinus rhythm Nonspecific T wave abnormality Abnormal ECG When compared with ECG of 06-MAR-2022 03:54, No significant change Confirmed by Chava Serrano ([id number]) on 05/21/2022 10:40:59 PM Referred By: Garrison Kovacs Confirmed By:Chava Serrano
--- NOTE | 2022-05-30 12:18 | Coding Query ---
CODING QUERY To promote full compliance with coding requirements relating to patient care, provider participation is requested in all cases of certified medical coder uncertainty. Please assist us with the question(s) below: Coding Question(s): The patient was admitted with melena and acute blood loss anemia. Esophagitis without bleeding was found during EGD examination. Please clarify if there is a correlation between the patient's diagnosis of esophagitis and the melena. (Y ) Yes, the esophagitis is the source of the melena. ( ) No, the esophagitis is not the source of the melena. ( ) Unable to determine ( ) Other, please explain Also, the patient had taken NSAIDs prior to admission. Is there a correlation between the NSAID use and the melena and/or esophagitis? ( Y) Yes, the NSAID use is related to the melena and/or the esophagitis. ( ) No, the NSAID use is not releated to the melena and/or the esophagitis. ( ) Unable to determine. ( ) Other, please explain Physician's Response(s): Recommendation was to take a BID PPI and also avoid nsaid's. Thank you for your time, KAVEH Sen, [facility]
== END 2022-05-20 17:46 | disposition home or self-care (01) ==
LOC: ED 20:20 → INTOOBSV 05-20 00:45 → 2E 05-20 00:45